=== PATIENT | female | born 1935 | race Caucasian/White ===

== ENCOUNTER → 2023-02-28 13:19 | Outpatient (CLI) | payer MEDICARE, SELFPAY ==
--- NOTE | ~2023-02-28 | US_ITS ---
US abdomen limited DATE: 02/28/2023 13:41 INDICATION: Jaundice. Elevated liver function tests. History of cholecystectomy. TECHNIQUE: Real-time imaging of liver, pancreas, gallbladder fossa COMPARISON: None FINDINGS: The common bile duct measures 7.6 mm which may be normal in this 87-year-old postcholecyste ctomy patient. There is surface nodularity of the liver suggesting cirrhosis. Normal hepatopedal portal venous flow direction. No hepatic space-occupying mass lesion is detected. The pancreatic tail is obscured. The pancreas otherwise appears unremarkable. No pancreatic duct dila tation. IMPRESSION: Hepatic surface nodularity suggests cirrhosis Status post cholecystectomy which may account for the common bile duct measuring up to 7.6 mm Reviewed, dictated and finalized at [facility]. Reviewed, dictated and finalized at [facility]. IMPRESSION: Hepatic surface nodularity suggests cirrhosis Status post cholecystectomy which may account for the common bile duct measurin g up to 7.6 mm
== END ==
DX: R17 Unspecified jaundice (principal); R79.89 Other specified abnormal findings of blood chemistry; Z90.49 Acquired absence of other specified parts of digestive tract
CPT/HCPCS: 76705

== ENCOUNTER 2024-07-22 10:27 | Emergency (ER) | payer MEDICARE, SELFPAY ==
[2024-07-22] VITALS (9 sets, daily range): BP systolic 160–173; BP diastolic 68–99; PULSE 89; RESP 16; TEMP 36.4; O2SAT 95–100
--- NOTE | ~2024-07-22 | XR_ITS ---
EXAMINATION: XR hand RT min 3V DATE: 07/22/2024 10:55 INDICATION: Right fifth digit injury post fall TECHNIQUE: Posteroanterior, oblique and lateral views of the right hand were obtained. COMPARISON: None. FINDINGS: Diffuse osteopenia. Right fourth digit mallet finger with chronic appearing ossicle dorsal to the hea d of the middle phalanx which could represent either a chronic nonunited avulsion fracture fragment o r heterotopic ossification related to chronic soft tissue injury. No acute fracture. Polyarticular osteoarthritis at the right hand and wrist, severe at the distal radioulnar, first carp ometacarpal and multiple interphalangeal joints with distal predominance. There is associated central erosions with gullwing configuration at the base of the fifth middle and distal phalanges with addit ional erosions at the head of the fifth proximal phalanx consistent with likely erosive arthritis. Th ere is secondary mild ulnar subluxation and angulation at the fifth proximal interphalangeal joint. M oderate osteoarthritis at the second and third metacarpophalangeal joints with associated minimal pal mar subluxation at both joints. Additional moderate osteoarthritis the remaining interphalangeal join ts. Mild osteoarthritis at multiple joints in the carpus. There is some widening of the scapholunate interval suggesting possible scapholunate ligament insufficiency. Chondrocalcinosis in the region of the triangular fibrocartilage complex. There is bandaging material about the mid to distal fifth digi t. IMPRESSION: 1. No acute fracture or other evident acute osseous abnormality. 2. 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 Reviewed, dictated and finalized at [facility]. 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 No acute fracture or other evident acute osseous abnormality. 2. 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
--- NOTE | ~2024-07-22 | CT_ITS ---
EXAMINATION: CT cervical spine wo con DATE: 07/22/2024 11:12 INDICATION: Anticoagulated patient post fall with head injury TECHNIQUE: Computed tomography (CT) of the cervical spine was performed without intravenous contrast. Automated exposure control and iterative reconstruction technique were employed. The dose-length pro duct was 308.69 mGy-cm. COMPARISON: None FINDINGS: Moderate atlantoaxial osteoarthritis with surrounding callus formation and prominent cystic change at the base of the dens. 12 degree cervicothoracic dextroscoliosis. 3 mm retrolisthesis C4 on C5, 2 mm anterolisthesis C7 on T1, millimeter anterolisthesis T1 on T2 and 3 mm anterolisthesis T2 on T3. Vert ebral body heights are normal. No acute fracture. Severe disc height loss at C4-C5, C5-6 and T1-T2, m oderate to severe disc height loss at C2-C3, C3-C4, C6-C7 and more, T2-T3 and T3-T4 and moderate disc height loss at C7-T1. Disc bulges, endplate osteophytes and disc osteophyte complexes result in mild multilevel central canal stenosis throughout the cervical spine most prominent at C4-C5. Multilevel bilateral severe cervical facet and uncovertebral osteoarthritis. There is solid osseous fusion acros s the bilateral C2-C3 facet joints. There is secondary neural foraminal stenosis, moderate severity o n the right that C3-C4 and bilaterally at C4-C5 and mild at many of the remaining levels in the cervi kristina spine. 5.5 cm left thyroid mass. Cervical soft tissues are otherwise unremarkable. There are some smooth septal line thickening in the visualized upper lungs consistent with minimal pulmonary edema. There are multiple <4 mm pulmonary nodules in the bilateral upper lungs. IMPRESSION: 1. Severe cervical spondylosis. No acute osseous abnormality. 2. 5.5 cm left thyroid mass. 3. Minimal pulmonary edema at the visualized upper lungs along with multiple <4 mm pulmonary nodules. If the patient is low risk for lung cancer, no follow-up is needed. If the patient is high risk (i.e ., history of smoking or asbestos or significant radiation exposure), optional follow-up chest CT cou ld be considered at 12 months. Reviewed, dictated and finalized at [facility]. L STRINGER IMPRESSION: 1. Severe cervical spondylosis. No acute osseous abnormality. 2. 5.5 cm left thyroid mass. 3. Minimal pulmonary edema at the visualized upper lungs along with multiple <4 mm pulmonary nodules. If the patient is low risk for lung cancer, no follow-up is needed. If the patient is high risk (i.e., history of smoking or asbestos o r significant radiation exposure), optional follow-up chest CT could be conside red at 12 months.
--- NOTE | ~2024-07-22 | CT_ITS ---
EXAMINATION: CT brain wo con DATE: 07/22/2024 11:12 INDICATION: Anticoagulated patient post fall with head injury TECHNIQUE: Computed tomography (CT) of the head was performed without intravenous contrast. Sagittal and coronal reconstructions were performed. The mA was adjusted according to patient size. Iterative reconstruction technique was employed. The dose-length product was 681.00 mGy-cm. COMPARISON: head CT dated 05/04/2006 FINDINGS: No fracture. No acute intracranial hemorrhage, acute infarction or abnormal extra axial fluid collect ion. There is moderate scattered white matter hypoattenuation consistent with chronic small vessel is chemic disease. Symmetric prominence of the sulci consistent with mild age-appropriate diffuse cerebr al volume loss. Ventricles are normal and symmetric. No mass/mass effect. Changes of bilateral intrao cular lens replacement. The orbits and mastoid air cells are normal. Small amount of low-density bubb ly mucus layering dependently in the left maxillary sinus. IMPRESSION: 1. No fracture or acute intracranial process. 2. Moderate scattered white matter hypoattenuation consistent with chronic small vessel ischemic dise ase. Reviewed, dictated and finalized at [facility]. 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 No fracture or acute intracranial process. 2. Moderate scattered white matter hypoattenuation consistent with chronic smal l vessel ischemic disease.
[2024-07-22 12:17] LABS: INR 3.8; Partial Thromboplastin Time 37.7 Seconds (22.3-36.8); Prothrombin Time 37.9 Seconds (11.1-14.7)
--- NOTE | 2024-07-22 13:20 | ED.FALL ---
HPI - Fall General Chief Complaint: Fall Stated Complaint: fall Time Seen by Provider: 07/22/24 10:46 History of Present Illness HPI Narrative: Patient is an 89-year-old female who presents ER after trip and fall outside of the [place]. She struck her head. She takes warfarin. She has abrasion under her right eye. She bit the inner part of her lower lip and has bruising. She also has a laceration around the right Fifth fingernail. no other complaints at this time. No extremity issues. Tetanus not up-to-date. Related Data Allergies Allergy/AdvReac Type Severity Reaction Status Date / Time No Known Allergies Allergy Mild Verified 07/22/24 10:28 Review of Systems Review of Systems: All systems reviewed & are unremarkable except as noted in HPI and below Constitutional: Constitutional: Reports no additional constitutional complaints Musculoskeletal: Musculoskeletal: Reports no additional musculoskeletal complaints Integumentary/Breasts: Skin/Breast: Reports system reviewed and no additional complaints, except as docu Neurologic: Reports system reviewed and no additional complaints, except as documented PMFSH Past Medical History Medical History (Updated 07/22/24 @ 13:25 by Fly Ayers MD) Hypertension Pacemaker Exam Narrative: GENERAL: Well-appearing, well-nourished, and in no acute distress. HEAD: Normocephalic, atraumatic. ENT: Mucous membranes moist. small abrasion beneath right eye with surrounding bruising. Bite nilo to intraoral aspect of the lateral right lower lip with bruising externally. NECK: Supple. CHEST: Clear to auscultation. No respiratory distress. HEART: Regular rate and rhythm. Normal peripheral pulses. ABDOMEN: Soft, nontender, nondistended EXTREMITIES: Normal range of motion. No edema. Linear 1.5 cm laceration at the finger nail base of the 5th digit on the right. SKIN: Warm, dry, no rash. NEURO: Alert and oriented x3. PSYCH: Normal mood and affect. Course Course Emergency Course: Patient informed of lab and imaging results. Tetanus will be updated. Wound repaired. Discharge. Vital Signs Vital signs: Vital Signs Temperature 97.6 F 07/22/24 10:33 Pulse Rate 89 07/22/24 10:33 Respiratory Rate 16 07/22/24 10:33 Blood Pressure 169/99 H 07/22/24 10:33 Pulse Oximetry 99 07/22/24 10:33 Oxygen Delivery Room Air 07/22/24 10:33 Temperature 97.6 F 07/22/24 10:33 Pulse Rate 89 07/22/24 10:33 Respiratory Rate 16 07/22/24 10:33 Blood Pressure 160/72 H 07/22/24 11:16 Pulse Oximetry 96 07/22/24 11:30 Oxygen Delivery Room Air 07/22/24 10:33 Procedures Laceration Laceration 1: Date: 07/22/24 Time: 13:10 Site: other (finger) Side (If applicable): right Size (cm): 1.5 Description: linear Depth: simple, single layer Local Anesthetic: lidocaine 1% and with epi Amount of anesthesia used (mL): 1 Pre-repair: irrigated ====== Skin Level ====== Skin layer closed with: nylon Size (cm): 5-0 Number of sutures: 3 Technique: simple, interrupted ====== Subcutaneous Layer ====== ====== Muscle Layer ====== ====== Tendon Layer ====== MDM - Fall Lab Data Labs: Lab Results 07/22/24 Range/Units 11:59 PT 37.9 H (11.1-14.7) Seconds INR 3.8 APTT 37.7 H (22.3-36.8) Seconds Imaging Data Radiologist's impression: ITS Impressions Hand X-Ray 07/22/24 11:05 IMPRESSION: 1. No acute fracture or other evident acute osseous abnormality. 2. 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 Head CT 07/22/24 11:20 IMPRESSION: 1. No fracture or acute intracranial process. 2. Moderate scattered white matter hypoattenuation consistent with chronic small vessel ischemic disease. Cervical Spine CT 07/22/24 11:33 IMPRESSION: 1. Severe cervical spondylosis. No acute osseous abnormality. 2. 5.5 cm left thyroid mass. 3. Minimal pulmonary edema at the visualized upper lungs along with multiple <4 mm pulmonary nodules. If the patient is low risk for lung cancer, no follow-up is needed. If the patient is high risk (i.e., history of smoking or asbestos or significant radiation exposure), optional follow-up chest CT could be considered at 12 months. Discharge Plan Discharge Clinical Impression: Abrasion of face, Contusion of face, Finger laceration Patient Disposition: Home, Self-Care Condition: Stable Instructions: Care For Your Stitches (ED), Contusion in Adults (ED), Abrasion (ED) Additional Instructions: Remove her sutures in 10 days. Return to the ER if your finger is red and hot, it is draining pus, you develop fever, or you have any additional concerns. Your INR was 3.8. Your tetanus shot was updated. Follow-up/Referrals: PHYSICIAN NOT ON STAFF,NONSTAFF [Primary Care Provider] - 2 Weeks
[2024-07-22] MEDS: TETANUS,DIPHTHERIA,AC PERTUSSIS ADULT (0.5 ML) BOOSTRIX IM (13:35)
== END 2024-07-22 13:42 | disposition home or self-care (01) ==
PROVIDERS: Emergency Provider Emergency Medicine
DX: S61.216A Laceration without foreign body of right little finger without damage to nail, initial encounter (principal); S00.11XA Contusion of right eyelid and periocular area, initial encounter; S00.531A Contusion of lip, initial encounter; S00.211A Abrasion of right eyelid and periocular area, initial encounter; S00.81XA Abrasion of other part of head, initial encounter; Z23 Encounter for immunization; I10 Essential (primary) hypertension; Z95.0 Presence of cardiac pacemaker; Z79.01 Long term (current) use of anticoagulants; W01.0XXA Fall on same level from slipping, tripping and stumbling without subsequent striking against object, initial encounter; M47.812 Spondylosis without myelopathy or radiculopathy, cervical region; E07.9 Disorder of thyroid, unspecified; R91.8 Other nonspecific abnormal finding of lung field; M19.031 Primary osteoarthritis, right wrist; M19.041 Primary osteoarthritis, right hand; M18.9 Osteoarthritis of first carpometacarpal joint, unspecified
CPT/HCPCS: 12001; 36415; 70450; 72125; 73130; 85610; 85730; 90471; 90715; 99284; J2004

== ENCOUNTER 2024-10-23 10:32 | Outpatient (CLI) | payer MEDICARE, SELFPAY ==
--- NOTE | ~2024-10-23 | US_ITS ---
EXAMINATION: US pelvic complete DATE: 10/23/2024 10:54 INDICATION: Ovarian cyst. TECHNIQUE: Multiple transabdominal sonographic images of the pelvis were obtained. COMPARISON: None. FINDINGS: The uterus is absent. There is no free fluid in the pelvis. The right ovary is not visualized. In the left adnexa, there is a 1.7 cm cyst. IMPRESSION: 1. 1.7 cm cyst in the left adnexa, likely benign. 2. Right ovary not visualized. Reviewed, dictated and finalized at location [facility]. 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
== END 2024-10-23 10:33 | disposition home or self-care (01) ==
LOC: GOSHIMG 10:34
DX: N94.9 Unspecified condition associated with female genital organs and menstrual cycle (principal)
CPT/HCPCS: 76856